=== PATIENT | male | born 1990 | race Hispanic/Latino ===

== ENCOUNTER 2021-06-15 13:57 | Emergency (ER) | payer BC ==
--- NOTE | 2021-06-15 14:57 | ER ---
Nurse's Notes [facility] Name: Bryant Ramos Age: 31 yrs Sex: Male : 1990 Arrival Date: 06/15/2021 Time: 14:03 Bed 10 Private MD: Dylan Johnson Diagnosis: Encounter for screening, unspecified Presentation: 06/15 14:05 Chief complaint: Patient states: Low back pain x 3 months, it got better then reports jl7 feeling a pop this morning and felt pain shoot through, unable to bend over. Called Dr. Alex MONSON's office, and they said to come to the ER for an x-ray and MRI. Coronavirus screen: At this time, the client does not indicate any symptoms associated with coronavirus-19. Ebola Screen: No symptoms or risks identified at this time. Initial Sepsis Screen: Does the patient meet any 2 criteria? No. Patient's initial sepsis screen is negative. Does the patient have a suspected source of infection? No. Patient's initial sepsis screen is negative. Risk Assessment: Do you want to hurt yourself or someone else? Patient reports no desire to harm self or others. Onset of symptoms was June 15, 2021. 14:05 Method Of Arrival: Ambulatory jl7 14:05 Acuity: TAL 4 jl7 Triage Assessment: 14:09 General: Appears in no apparent distress. uncomfortable, Behavior is calm, cooperative, jl7 appropriate for age. Pain: Complains of pain in low back area. Musculoskeletal: Swelling absent. Historical: - Allergies: 14:09 No Known Allergies; jl7 - Home Meds: 14:09 None [Active]; jl7 - PMHx: 14:09 None; jl7 - PSHx: 14:09 Bilateral ACL repair; jl7 - Immunization history:: Adult Immunizations unknown. - Social history:: Smoking status: Patient denies any tobacco usage or history of. Screenin:39 Abuse screen: Denies threats or abuse. Nutritional screening: No deficits noted. ap3 Tuberculosis screening: No symptoms or risk factors identified. Fall Risk None identified. No fall in past 12 months (0 pts). No secondary diagnosis (0 pts). No IV (0 pts). Ambulatory Aid- None/Bed Rest/Nurse Assist (0 pts). Gait- Normal/Bed Rest/Wheelchair (0 pts) Mental Status- Oriented to own ability (0 pts). Total Guerrero Fall Scale indicates No Risk (0-24 pts). Assessment: 14:38 General: Appears in no apparent distress. Behavior is calm, cooperative, appropriate ap3 for age. Pain: Complains of pain in low back area Pain does not radiate. Neuro: Level of Consciousness is awake, alert, obeys commands, Oriented to person, place, time, situation, Appropriate for age Moves all extremities. Gait is steady, Speech is normal. Respiratory: Airway is patent Respiratory effort is even, unlabored, Respiratory pattern is regular, symmetrical. Vital Signs: 14:05 BP 137 / 84; Pulse 85; Resp 15; Temp 98; Pulse Ox 100% ; jl7 ED Course: 14:03 Patient arrived in ED. mr 14:03 Dylan Johnson DO is Private Physician. mr 14:09 Triage completed. jl7 14:09 Arm band placed on right wrist. jl7 14:12 Kelly Crawford [facility]C [facility] kb 14:12 Wild Beltran MD is Attending Physician. kb 14:38 Pinky Bales, ZEHRA is Primary Nurse. ap3 14:39 Patient has correct armband on for positive identification. Call light in reach. Door ap3 closed. Noise minimized. 14:57 No provider procedures requiring assistance completed. Patient did not have IV access ap3 during this emergency room visit. Administered Medications: No medications were administered Outcome: 14:57 Discharge ordered by MD. kb 14:57 Medical screen evaluation completed per provider. ap3 14:57 Condition: good 14:57 Discharge instructions given to patient, Instructed on Demonstrated understanding of instructions, follow-up care. 14:58 Patient left the ED. ap3 Signatures: Kelly Crawford FNP-C FNP-Oswald Nadia Shoemaker CurrieJuan A RN RN jl7 Pinky Bales RN RN ap3 Corrections: (The following items were deleted from the chart) 14:10 14:09 PSHx: None; jl7 jl7
--- NOTE | 2021-06-15 14:57 | EDPHYS ---
Physician Documentation [facility] Name: Bryant Ramos Age: 31 yrs Sex: Male : 1990 Arrival Date: 06/15/2021 Time: 14:03 Bed 10 Private MD: Alex [facility] ED Physician Wild Beltran HPI: 06/15 14:27 This 31 yrs old Male presents to ER via Ambulatory with complaints of Back kb Pain. 14:27 The patient presents with pain that is chronic, with no known mechanism of injury. The kb symptoms are located in the low back. Onset: The symptoms/episode began/occurred 3 month(s) ago. The pain does not radiate. Associated signs and symptoms: The patient has no apparent associated signs or symptoms, Pertinent negatives: fever, incontinence, numbness, tingling, urinary retention, weakness. The problem was sustained from a chronic condition, from unknown cause. Modifying factors: The patient symptoms are alleviated by nothing, the patient symptoms are aggravated by any movement. Severity of symptoms: At their worst the symptoms were moderate, in the emergency department the symptoms are unchanged. The patient has not experienced similar symptoms in the past. The patient has not recently seen a physician. Pt reports he has had low back pain for 3 months. States he felt it "slip" today so he went to Dr Johnson's office and was told to come here for an MRI and x-ray. Pt denies injury or trauma. 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 Pt states he went to [facility] when pain originally started and was told he may need an MRI, but they tried other things first. States he did 12 treatments with chiropractor and PT with no relief. . Historical: - Allergies: 14:09 No Known Allergies; jl7 - Home Meds: 14:09 None [Active]; jl7 - PMHx: 14:09 None; jl7 - PSHx: 14:09 Bilateral ACL repair; jl7 - Immunization history:: Adult Immunizations unknown. - Social history:: Smoking status: Patient denies any tobacco usage or history of. ROS: 14:25 Constitutional: Negative for fever, chills, and weight loss. kb 14:25 Back: Positive for pain at rest, pain with movement, of the lumbar area, Negative for injury or acute deformity, decreased range of motion, radiated pain. 14:25 All other systems are negative. Exam: 14:25 Constitutional: This is a well developed, well nourished patient who is awake, alert, kb and in no acute distress. Head/Face: Normocephalic, atraumatic. ENT: Moist Mucous membranes Respiratory: Respirations even and unlabored. No increased work of breathing, no retractions or nasal flaring. Back: No spinal tenderness. No costovertebral tenderness. Full range of motion. Skin: Warm, dry with normal turgor. Normal color. MS/ Extremity: Pulses equal, no cyanosis. Neurovascular intact. Full, normal range of motion. Neuro: Awake and alert, GCS 15, oriented to person, place, time, and situation. Moves all extremities. Normal gait. Psych: Awake, alert, with orientation to person, place and time. Behavior, mood, and affect are within normal limits. Vital Signs: 14:05 BP 137 / 84; Pulse 85; Resp 15; Temp 98; Pulse Ox 100% ; jl7 MDM: 14:12 Patient medically screened. kb 14:22 Data reviewed: vital signs, nurses notes. Data interpreted: Pulse oximetry: on room air kb is 100 %. Interpretation: normal. 14:26 ED course: Pt ambulates with steady gait, no neuro deficits. Pain is nonradiating. Pt kb is in no apparent distress. Denies incontinence of bladder or bowel. No indication for emergent MRI at this time. . 14:57 Counseling: I had a detailed discussion with the patient and/or guardian regarding: the kb historical points, exam findings, and any diagnostic results supporting the discharge/admit diagnosis, the need for outpatient follow up, a family practitioner, to return to the emergency department if symptoms worsen or persist or if there are any questions or concerns that arise at home. 14:57 ED course: Pt spoke to Dr Johnson's office and there is an opening now so he will be seen kb in the office upon leaving the ER.. Administered Medications: No medications were administered Disposition: 14:57 Low back pain. kb Disposition Summary: 06/15/21 14:57 Discharge Ordered Location: Home kb Condition: Stable kb Diagnosis - Encounter for screening, unspecified kb Followup: kb - With: Emergency Department - When: As needed - Reason: Worsening of condition Followup: kb - With: Private Physician - When: 2 - 3 days - Reason: Recheck today's complaints, Continuance of care, Re-evaluation by your physician Forms: - Medication Reconciliation Form kb - Thank You Letter kb - Antibiotic Education kb - Prescription Opioid Use kb Addendum: 06/17/2021 11:00 Co-signature as Attending Physician, Wild Beltran MD I agree with the assessment and c swartz plan of care. Signatures: Kelly Crawford, NOEL-C NEWSPAPER PHOTOJOURNALIST-Wild Leon MD MD cha Leal, Jahala, RN RN jl7 Corrections: (The following items were deleted from the chart) 06/15 14:10 14:09 PSHx: None; jl7 jl7 14:44 14:26 ED course: Pt ambulates with steady gait, no neuro deficits. Pain is kb nonradiating. Pt is in no apparent distress. Denies incontinence of bladder or bowel. . kb
[2021-06-15 15:07] VITALS: BP 137/84; TEMP 98; O2SAT 100
== END 2021-06-15 14:58 | disposition home or self-care (01) ==
LOC: ER 13:57
DX: M54.5 Low back pain (principal)
CPT/HCPCS: 99281